=== PATIENT | male | born 1955 | race Caucasian/White ===

== ENCOUNTER → 2024-07-20 16:19 | Outpatient (BNVA) | payer MEDICARE, SELFPAY | PROVIDERS: Visit Provider Nurse Practitioner | DX: R53.83 Other fatigue (principal) | CPT/HCPCS: 80053; 84443; 85025 ==

== ENCOUNTER → 2024-07-28 14:12 | Outpatient (BNVA) | payer MEDICARE, SELFPAY | DX: Z76.89 Persons encountering health services in other specified circumstances (principal); R53.83 Other fatigue; R73.09 Other abnormal glucose | CPT/HCPCS: 80053; 83036; 84439; 84443; 85025 ==

== ENCOUNTER → 2024-11-03 13:37 | Outpatient (BNVA) | payer MEDICARE, SELFPAY | DX: E11.9 Type 2 diabetes mellitus without complications (principal) | CPT/HCPCS: 80053; 80061; 83036; 85025 ==